=== PATIENT | male | born 1965 | race Caucasian/White ===

== ENCOUNTER 2016-11-13 09:57 | Day surgery (SDC) | payer BC ==
[2016-11-12 09:39] VITALS: BMI 28.7
[~2016-11-13 09:57] MED LIST: DEXAMETHASONE SOD PHOSPHATE 10 MG/ML 1 ML VIAL IV ONE; HEPARIN SODIUM,PORCINE 5,000 UNIT/ML 1 ML VIAL SQ ONE; HYDROmorphone 1 MG/ML 1 ML SYRINGE IVP PRN; LACTATED RINGERS 1,000 ML IV SCH; LIDOCAINE 1% 20 ML VIAL (10MG/ML) FOR IV START INTRADERMA PRN; MIDAZOLAM 2 MG/2 ML VIAL IV PRN; ONDANSETRON 4 MG/2 ML VIAL IVP ONE; SCOPOLAMINE 1.5MG/72HR PATCH TRANSDERM ONE; ceFAZolin 2 GM in SODIUM CHLORIDE 0.9% 100 ML IVPB ONE
--- NOTE | 2016-11-13 10:52 | P.GSHP ---
History of Present Illness H&P Date: 11/13/16 Chief Complaint: Chronic cholecystitis Patient here today for laparoscopic cholecystectomy. He was seen in the office recently complaining of right upper quadrant pain. This is coming in episodic waves. This has been associated with episodes of nausea and vomiting. He was seen in the ER. An ultrasound was fairly unimpressive. He does have chronic diarrhea that he believes is separate from this issue. A HIDA scan showed cystic duct obstruction. Liver enzymes were normal. Past Medical History Additional Past Medical History / Comment(s): RUQ pain History of Any Multi-Drug Resistant Organisms: None Reported Past Surgical History: Tonsillectomy Additional Past Surgical History / Comment(s): colonoscopy Past Anesthesia/Blood Transfusion Reactions: No Reported Reaction Past Psychological History: No Psychological Hx Reported Smoking Status: Former smoker Past Alcohol Use History: Occasional Additional Past Alcohol Use History / Comment(s): quit smoking 2014, smoked < ppweek for 20 yrs. Past Drug Use History: None Reported - Past Family History Mother Family Medical History: No Reported History Medications and Allergies Home Medications Medication Instructions Recorded Confirmed Type HYDROcodone/APAP 7.5-325MG [[place] 1 tab PO Q4H PRN 11/12/16 11/12/16 History 7.5-325] Ondansetron [Zofran] 4 mg PO Q8HR PRN 11/12/16 11/12/16 History Allergies Allergy/AdvReac Type Severity Reaction Status Date / Time No Known Allergies Allergy Verified 11/12/16 09:33 Surgical - Exam Vital Signs Temp Pulse Resp BP Pulse Ox 97.8 F 51 L 18 117/72 96 11/13/16 10:27 11/13/16 10:27 11/13/16 10:27 11/13/16 10:27 11/13/16 10:27 Physical exam: General: Well-developed, well-nourished HEENT: Normocephalic, sclerae nonicteric Abdomen: Right upper quadrant tenderness, nondistended Extremities: No edema Neuro: Alert and oriented Assessment and Plan (1) Chronic cholecystitis Narrative/Plan: Will proceed with laparoscopic cholecystectomy at this time. Risks of bleeding , infection, bile duct injury, bile leak, retained common bile duct stone, worsening or persistent diarrhea, chronic pain, hernia, and anesthesia-related complications were discussed. He understands and wishes to proceed. Status: Acute
[2016-11-13] MEDS ORDERED: MIDAZOLAM 2 MG/2 ML VIAL ONE (11:47)
[2016-11-13] MEDS ORDERED: SUCCINYLCHOLINE CHLORIDE 100 MG/5 ML SYR IV ONE (11:47)
[2016-11-13] MEDS ORDERED: LIDOCAINE 1% INJ 10MG/ML (20 ML MDV) ONE (11:47)
[2016-11-13] MEDS ORDERED: PROPOFOL 10 MG/ML 20 ML VIAL IV ONE (11:47)
[2016-11-13] MEDS ORDERED: GLYCOPYRROLATE 0.2 MG/ML 2 ML VIAL ONE (11:47)
[2016-11-13] MEDS ORDERED: fentaNYL (PF) 50 MCG/ML 2 ML AMP ONE (11:47)
[2016-11-13] MEDS ORDERED: ROCURONIUM BROMIDE 10 MG/ML 10 ML VIAL IV ONE (11:47)
[2016-11-13] MEDS ORDERED: NEOSTIGMINE 1 MG/ML 10 ML VIAL ONE (11:47)
[2016-11-13] MEDS ORDERED: BUPIVACAIN-EPI 0.25%-1:200,000 30 ML VIAL SQ ONE (11:47)
[2016-11-13] MEDS ORDERED: LACTATED RINGERS 1,000 ML IV ONE (12:49)
[2016-11-13] MEDS ORDERED: HYDROcodone/APAP 5-325MG 1 EACH TAB PO PRN (12:50)
[2016-11-13] MEDS ORDERED: NALOXONE 0.4 MG/ML 1 ML VIAL IV PRN (12:50)
--- NOTE | 2016-11-13 12:52 | P.PCN ---
Date of Procedure: 11/13/16 Procedure(s) Performed: PREOPERATIVE DIAGNOSIS: Chronic cholecystitis POSTOPERATIVE DIAGNOSIS: Same PROCEDURE: Laparoscopic cholecystectomy SURGEON: Ector EBL: Minimal see anesthesia record ANESTHESIA: Gen. COMPLICATIONS: None OPERATIVE PROCEDURE: The patient was brought and placed on the operating room table in the supine position. The patient was placed under general anesthesia at that time. The abdomen was prepped and draped in the usual sterile fashion. A small vertical infraumbilical incision was made. The fascia was grasped with the Pamela forceps. The fascia was retracted anteriorly. The Veress needle was advanced into the peritoneal cavity. The saline drop test was normal. Insufflation took place up to 15 mmHg. A 5 mm optical trocar was advanced and the peritoneal cavity. 2 additional 5 mm trochars were placed in the right upper quadrant under direct visualization. A 12 mm trocar was advanced into the epigastric incision site. The gallbladder was retracted superiorly and laterally. The gallbladder was quite long with a very mobile and elongated mesentery. The peritoneum overlying the infundibulum was bluntly dissected. The patient's cystic duct was visualized. The junction between the cystic duct common and hepatic duct was identified. The cystic duct was then divided after placement of 3 12 mm clips on the patient's side and one on the specimen side. The patient had a somewhat tortuous cystic artery putting off several branches throughout this large mesentery. The individual branches of the cystic artery were clipped staying right on the wall of the gallbladder. The gallbladder was then removed from the liver bed using electrocautery. The gallbladder was then removed from the epigastric trocar site with an Endo Catch bag. The gallbladder fossa was irrigated with saline. There was no evidence of any bleeding or biliary drainage seen. The trochars were then removed. The fascia at the 12 millimeter site was closed using a [id number] 0 Vicryl stitch. The skin at all 4 sites was closed using a 4-0 Monocryl stitch. At the end of this procedure the sponge and needle counts were correct. DISPOSITION: Stable to the recovery room
[2016-11-13 13:13] VITALS: TEMP 97
[2016-11-13 14:33] VITALS: RESP 16
[2016-11-13] MEDS ORDERED: HYDROcodone/APAP 5-325MG 1 EACH TAB PO ONE (14:44)
[2016-11-13 15:31] VITALS: BP 156/96; PULSE 48
== END 2016-11-13 15:56 | disposition home or self-care (01) ==
LOC: OR 09:57
PROVIDERS: ATTEND Surgery
DX: K80.12 Calculus of gallbladder with acute and chronic cholecystitis without obstruction (principal); R19.7 Diarrhea, unspecified; Z87.891 Personal history of nicotine dependence
CPT/HCPCS: 88304; 47562; J2250; J1644; J1100; J2710; J0690; J2405; J2001; J3010; J0330; J2704

== ENCOUNTER 2022-05-29 11:55 | Day surgery (SDC) | payer BC ==
[2022-05-27 16:55] VITALS: BMI 31.0
[~2022-05-29 11:55] MED LIST changes: -DEXAMETHASONE SOD PHOSPHATE 10 MG/ML 1 ML VIAL IV ONE; -HEPARIN SODIUM,PORCINE 5,000 UNIT/ML 1 ML VIAL SQ ONE; -HYDROmorphone 1 MG/ML 1 ML SYRINGE IVP PRN; -LIDOCAINE 1% 20 ML VIAL (10MG/ML) FOR IV START INTRADERMA PRN; -MIDAZOLAM 2 MG/2 ML VIAL IV PRN; -ONDANSETRON 4 MG/2 ML VIAL IVP ONE; -SCOPOLAMINE 1.5MG/72HR PATCH TRANSDERM ONE; -ceFAZolin 2 GM in SODIUM CHLORIDE 0.9% 100 ML IVPB ONE
[2022-05-29 13:25] VITALS: RESP 16; TEMP 97
[2022-05-29] MEDS ORDERED: LIDOCAINE 1% (10MG/ML) FOR IV START INTRADERMA ONE (13:30)
[2022-05-29] MEDS ORDERED: PROPOFOL 10 MG/ML 20 ML VIAL IV ONE (14:17)
--- NOTE | 2022-05-29 14:43 | P.PCN ---
Date of Procedure: 05/29/22 Procedure(s) Performed: BRIEF HISTORY: Patient is a 56-year-old pleasant white male scheduled for an elective colonoscopy as a part of screening for colorectal neoplasia. PROCEDURE PERFORMED: Colonoscopy with snare polypectomy . PREOPERATIVE DIAGNOSIS: Screening for colon cancer. IV sedation per Anesthesia. PROCEDURE: After informed consent was obtained, the patient, was brought into the endoscopy unit. IV sedation was administered by Anesthesia under continuous monitoring. Digital rectal examination was normal. Initially the Olympus CF-160 flexible video colonoscope was then inserted in the rectum, gradually advanced into the cecum without any difficulty. Careful examination was performed as the scope was gradually being withdrawn. Ileocecal valve and the appendiceal orifice were visualized and appeared normal. Prep was excellent. Mucosa of the cecum, appeared normal. In the ascending colon there was a 3-4 mm sessile polyp removed by snare polypectomy. Rest of the ascending colon, transverse colon, descending colon, appeared normal. In the sigmoid colon there was a 3 mm and 5 mm polyp removed by snare polypectomy. In the rectum there was a 5 mm polyp removed by snare polypectomy. Retroflexion was performed in the rectum and no lesions were seen. The patient tolerated the procedure well. IMPRESSION: 3-4 mm ascending colon polyp status post polypectomy 3 mm and 5 mm sigmoid colon polyp status post polypectomy 5 mm rectal polyp status post polypectomy RECOMMENDATIONS: Findings of this examination were discussed with the patient as well as his family. He was advised tofollow with the biopsy results. If the biopsy result adenoma he can have a repeat colonoscopy in 5 years
[2022-05-29 15:02] VITALS: BP 167/95; PULSE 50
== END 2022-05-29 15:20 | disposition home or self-care (01) ==
LOC: ORWHC2ENDO 11:55
PROVIDERS: ATTEND Internal Medicine Gastroenterology
DX: Z12.11 Encounter for screening for malignant neoplasm of colon (principal); K63.5 Polyp of colon; K62.1 Rectal polyp; F12.90 Cannabis use, unspecified, uncomplicated; Z87.891 Personal history of nicotine dependence
CPT/HCPCS: 45385; J2704; 88305; 88313

== ENCOUNTER → 2023-12-02 | Outpatient (CLI) | payer BC ==
--- NOTE | 2023-12-02 18:34 | US ---
EXAMINATION TYPE: US scrotum with doppler. Grayscale and color Doppler Duplex imaging performed of radha ramirez scrotum. DATE OF EXAM: 12/02/2023 COMPARISON: NONE CLINICAL INDICATION: Male, 57 years old with history of R22.2 LOCALIZED SWELLING, MASS AND LUMP, TRUN K; lump EXAM MEASUREMENTS: TESTICLES: Right Testicle: 4.9 x 2.4 x 3.7 cm Anechoic area seen .4 x .2 x .4 cm. Left Testicle: 4.9 x 2.7 x 3.4 cm EPIDIDYMIS HEAD: Right Epididymis: 1.1 x 1.6 x 1.0 cm Left Epididymis: .7 x .9 x .9 cm Doppler performed to assess for testicular vascularity; good bilateral color flow and waveforms are s een. There is no evidence of testicular torsion. Presence of hydroceles: No Presence of varicoceles: yes IMPRESSION: 1. Small cyst of the right testicle but no solid testicular mass or torsion. 2. Moderate bilateral varicoceles 3. No hydroceles. 4. Normal epididymi
== END | disposition home or self-care (01) ==
LOC: RADUSWWP 09:46
PROVIDERS: ATTEND Family Medicine
DX: I86.1 Scrotal varices (principal); N50.89 Other specified disorders of the male genital organs; R22.2 Localized swelling, mass and lump, trunk
CPT/HCPCS: 76870; 93975

== ENCOUNTER → 2023-12-15 | Outpatient (CLI) | payer BC ==
--- NOTE | 2023-12-19 16:03 | US ---
EXAMINATION TYPE: US scrotum with doppler. Grayscale and color Doppler Duplex imaging performed of radha ramirez scrotum. DATE OF EXAM: 12/15/2023 COMPARISON: 12/02/23 CLINICAL INDICATION: Male, 58 years old with history of N50.89 OTHER SPECIFIED DISORDERS OF THE MALE GENIT; palpable area EXAM MEASUREMENTS: TESTICLES: Right Testicle: 4.7x2.9x2.6 cm Left Testicle: 4.9x3.0x3.3cm cm EPIDIDYMIS HEAD: Right Epididymis: 1.0 cm Left Epididymis: 0.8 cm Doppler performed to assess for testicular vascularity; good bilateral color flow and waveforms are s een. There is no evidence of testicular torsion. Presence of hydroceles: no Presence of varicoceles: bilateral right testicle benign simple cyst: 0.5x0.3x0.3cm palpable area scanned. Corresponds to a 1.1x0.4x1.3cm hypoechoic ovoid area with increased vascularit y within the dermis. No obvious tract to the skin identified. This is approximately 2 mm below the sk in surface. No posterior acoustic enhancement identified. Demonstrates smooth margin. IMPRESSION: 1. No evidence of testicular torsion or mass. 2. Benign-appearing small right testicular cyst. 3. Moderate bilateral varicoceles are demonstrated. 4. Nonspecific 1.3 cm hypoechoic lesion within the dermis posterior to the scrotum at site of palpabl e abnormality. Consider tissue sampling.
== END | disposition home or self-care (01) ==
LOC: RADUSWWP 15:27
PROVIDERS: ATTEND Family Medicine
DX: N44.2 Benign cyst of testis (principal); I86.1 Scrotal varices; N50.89 Other specified disorders of the male genital organs
CPT/HCPCS: 76870; 93975